=== PATIENT | female | born 1935 | race African-American/Black ===

== ENCOUNTER 2016-11-03 09:00 | Outpatient (RCR) | payer MEDICARE, OTHER | END 2016-11-11 | disposition home or self-care (01) | LOC: PTY 09:00 | DX: Z96.611 Presence of right artificial shoulder joint (principal); M25.511 Pain in right shoulder | CPT/HCPCS: 97110; 97140; 97161; G8984; G8985 ==

== ENCOUNTER 2016-11-14 07:22 | Outpatient (RCR) | payer MEDICARE, OTHER | END 2016-12-09 | disposition home or self-care (01) | LOC: PTY 07:22 | DX: Z96.611 Presence of right artificial shoulder joint (principal); M25.511 Pain in right shoulder; I10 Essential (primary) hypertension; Z79.82 Long term (current) use of aspirin | CPT/HCPCS: 97110; 97140; G0283; G8978; G8979 ==

== ENCOUNTER 2016-12-26 08:55 | Outpatient (RCR) | payer MEDICARE, OTHER | END 2017-01-09 | disposition home or self-care (01) | LOC: PTY 08:55 | DX: Z96.611 Presence of right artificial shoulder joint (principal); M25.511 Pain in right shoulder ==

== ENCOUNTER 2017-11-26 10:45 | Outpatient (RCR) | payer MEDICARE, OTHER | END 2017-12-09 | disposition home or self-care (01) | LOC: PTY 10:45 | DX: M54.2 Cervicalgia (principal); M54.5 Low back pain; M25.511 Pain in right shoulder; Z96.611 Presence of right artificial shoulder joint | CPT/HCPCS: 97110; 97140; 97161; G0283; G8984; G8985 ==

== ENCOUNTER 2017-12-17 11:15 | Outpatient (RCR) | payer MEDICARE, OTHER | END 2018-01-09 | disposition home or self-care (01) | LOC: PTY 11:15 | DX: M54.2 Cervicalgia (principal); M54.5 Low back pain | CPT/HCPCS: 97110; 97140; G0283 ==

== ENCOUNTER 2018-01-14 11:03 | Outpatient (RCR) | payer MEDICARE, OTHER | END 2018-02-08 | disposition home or self-care (01) | LOC: PTY 11:03 | DX: M54.2 Cervicalgia (principal); M54.5 Low back pain | CPT/HCPCS: 97032; 97110; G0283 ==

== ENCOUNTER 2018-02-11 08:59 | Outpatient (RCR) | payer MEDICARE, OTHER | END 2018-03-11 | disposition home or self-care (01) | LOC: PTY 08:59 | DX: M54.2 Cervicalgia (principal); M54.5 Low back pain; Z96.611 Presence of right artificial shoulder joint; M25.511 Pain in right shoulder | CPT/HCPCS: 97032; 97110; G8985; G8986 ==